=== PATIENT | female | born 1985 | race Caucasian/White ===

== ENCOUNTER 2019-02-25 12:02 | Emergency (ER) | payer BC ==
[~2019-02-25] VITALS: Ht 160 cm; Wt 77.1 kg
--- OUTSIDE RECORDS SUMMARY | 2019-02-25 12:05 | XMS REPORT | Encounter Summary ---
Author Organization Unknown Address [address] [place] [address] Phone [phone] Reason for Visit Medical Complaint Instructions 1. Aphthous ulcer of mouth canker sore: care instructions 2. Pain in throat sore throat: care instructions rapid strep group A, throat Discussion Note: None recorded. Plan of Care Patient Instructions gargle salt water as directed. follow up pcp Reminders Provider Appointments None recorded. Lab Rapid Strep Group a, Throat 10/20/2017 [facility] Referral None recorded. Procedures None recorded. Surgeries None recorded. Imaging None recorded. Medications Name Start Date clonidine HCl 0.1 mg tablet TK 1 T PO QHS UTD estradiol 0.5 mg tablet TK 1 T PO ONCE D fluoxetine 40 mg capsule TK 1 C PO QD IN THE MORNING hydrocodone 5 mg-acetaminophen 325 mg tablet ibuprofen 800 mg tablet methylphenidate 20 mg tablet naproxen 500 mg tablet Medications Administered None recorded. Vitals Height Weight BMI Blood Pressure 5 ft 3 in 200 lbs 35.4 kg/m2 116/70 mm[Hg] Lab Results Date Name Specimen Result Interpretation Description Value Range Status Address Rapid Strep Group a, Throat Result negative [facility]: [address] [place] [address] Swab Location Left and Right tonsillar pillars [facility]: [address] [place] [address] Allergies Code Code System Name Reaction Severity Status Onset NKDA Problems Name Status Onset Date Source Candidal Vulvovaginitis Active Encounter Hypotrichosis of Eyelid Active Encounter Pain in Eye Active Encounter Common Cold Active Encounter Acute Sinusitis Active Encounter Acute Frontal Sinusitis Active Encounter Acute Pharyngitis Active Encounter Allergic Rhinitis Active Encounter Blood in Urine Active Encounter Low Back Pain Active Encounter Cough Active Encounter Procedures Date Name Performed by Hysterectomy Information not available Delivery Information not available Vaccine List Vaccine Type influenza, injectable, quadrivalent 10/01/2017 influenza, seasonal, injectable 08/13/2011 08/13/2013 meningococcal MCV4P 04/02/2012 Tdap 08/13/2011 Social History Smoking Status Never Smoker Past Encounters 10/20/2017 Aphthous Ulcer of Mouth; Pain in Throat [place] [facility], [facility]: [address] [facility], [place] [address], Ph. History of Present Illness Throat-Oral Complaint Reported By: Patient HPI: Location: throat. Quality: sore throat. Severity: mild, moderate. Duration: 3 days. Onset/Timing: gradual. Context: no sick contacts, no foreign travel, non-smoker. Modifying factors: OTC medication. Associated Symptoms: no fever, no headache, no body aches, no sputum production, no shortness of breath, no wheezing, no change in number of pillows needed to sleep at night, no sweats, no significant weight gain, no significant weight loss, no morning cough, no vomiting, no diarrhea, no rash, no nausea, sore throat Review of Systems:ROS as noted in the HPI Review of Systems Basic Reported By: Patient Physical Exam Adult Basic, Adult Female Complete Reported By: Patient Constitutional: General Appearance: obese. Level of Distress: NAD. Ambulation: ambulating normally Psychiatric: Mental Status: active and alert Eyes: Lids and Conjunctivae: non-injected, no discharge Zea-Gtdt-Hamiz-Throat: Ears: no lesions on external ear, no outer ear tenderness, EACs clear, TMs clear. Nose: no lesions on external nose, nares patent, no septal deviation, nasal passages clear, no sinus tenderness, no nasal discharge. Lips, Teeth, and Gums: mouth ulcers. Oropharynx: moist mucous membranes, no erythema, no exudates, tonsils absent Neck: Neck: trachea midline. Lymph Nodes: no cervical LAD Lungs: Respiratory effort: no dyspnea, no tachypnea, no use of accessory muscles, no intercostal retractions. Auscultation: breath sounds normal Cardiovascular: Heart Auscultation: RRR, no murmurs
--- OUTSIDE RECORDS SUMMARY | 2019-02-25 12:05 | XMS REPORT | Encounter Summary ---
Author Organization Unknown Address [address] [place] [address] Phone [phone] Reason for Visit Medical Complaint Instructions 1. Acute sinusitis sinusitis: care instructions fluticasone 50 mcg/actuation nasal spray,suspension Augmentin 875 mg-125 mg tablet 2. Body mass index 30+ - obesity body mass index: care instructions learning about healthy weight 3. Elevated blood pressure elevated blood pressure: care instructions dash diet: care instructions blood pressure monitoring education Discussion Note: None recorded. Plan of Care Patient Instructions Your Care Instructions Sinusitis is an infection of the lining of the sinus cavities in your head. Sinusitis often follows a cold. It causes pain and pressure in your head and face. In most cases, sinusitis gets better on its own in 1 to 2 weeks. But some mild symptoms may last for several weeks. Sometimes antibiotics are needed. Follow-up care is a domínguez part of your treatment and safety. Be sure to make and go to all appointments, and call your doctor if you are having problems. It's also a good idea to know your test results and keep a list of the medicines you take. How can you care for yourself at home? Take an pksn-ksp-iwecmcp pain medicine, such as acetaminophen (Tylenol), ibuprofen (Advil, Motrin), or naproxen (Aleve). Read and follow all instructions on the label. If the doctor prescribed antibiotics, take them as directed. Do not stop taking them just because you feel better. You need to take the full course of antibiotics. Be careful when taking pzbi-poi-jqvpbsb cold or flu medicines and Tylenol at the same time. Many of these medicines have acetaminophen, which is Tylenol. Read the labels to make sure that you are not taking more than the recommended dose. Too much acetaminophen (Tylenol) can be harmful. Breathe warm, moist air from a steamy shower, a hot bath, or a sink filled with hot water. Avoid cold, dry air. Using a humidifier in your home may help. Follow the directions for cleaning the machine. Use saline (saltwater) nasal washes to help keep your nasal passages open and wash out mucus and bacteria. You can buy saline nose drops at a grocery store or drugstore. Or you can make your own at home by adding 1 teaspoon of salt and 1 teaspoon of baking soda to 2 cups of distilled water. If you make your own, fill a bulb syringe with the solution, insert the tip into your nostril, and squeeze gently. Blow your nose. Put a hot, wet towel or a warm gel pack on your face 3 or 4 times a day for 5 to 10 minutes each time. Try a decongestant nasal spray like oxymetazoline (Afrin). Do not use it for more than 3 days in a row. Using it for more than 3 days can make your congestion worse. When should you call for help? Call your doctor now or seek immediate medical care if: You have new or worse swelling or redness in your face or around your eyes. You have a new or higher fever. Watch closely for changes in your health, and be sure to contact your doctor if: You have new or worse facial pain. The mucus from your nose becomes thicker (like pus) or has new blood in it. You are not getting better as expected. Reminders Provider Appointments None recorded. Lab None recorded. Referral None recorded. Procedures None recorded. Surgeries None recorded. Imaging None recorded. Medications Name Start Date amoxicillin 500 mg capsule Augmentin 875 mg-125 mg tablet Take 1 tablet every 12 hours by oral route for 7 days. benzonatate 100 mg capsule TK 1 C PO TID PRF COUGH benzonatate 200 mg capsule clonazepam 0.5 mg tablet clonidine HCl 0.1 mg tablet TK 1 T PO QHS UTD doxycycline monohydrate 100 mg capsule estradiol 0.5 mg tablet TK 1 T PO ONCE D Flucelvax Quad [id number] 60 mcg (15 mcg x 4)/0.5 mL IM suspension IMMUNIZATION GIVEN fluconazole 150 mg tablet fluoxetine 40 mg capsule TK 1 C PO QD IN THE MORNING fluticasone 50 mcg/actuation nasal spray,suspension Hume 1 spray twice a day by intranasal route for 14 days. hydrocodone 5 mg-acetaminophen 325 mg tablet ibuprofen 800 mg tablet Linzess 72 mcg capsule Lyrica 75 mg capsule methylphenidate 20 mg tablet naproxen 500 mg tablet prednisone 20 mg tablet promethazine-DM 6.25 mg-15 mg/5 mL syrup TK 5 ML PO QHS PRN COU. CAN BE SEDATING valacyclovir 500 mg tablet Ventolin HFA 90 mcg/actuation aerosol inhaler INL 1 TO 2 PFS PO Q 4 TO 6 H PRF WHZ OR COUGH Medications Administered None recorded. Vitals Height Weight BMI Blood Pressure 5 ft 3 in 207 lbs 36.7 kg/m2 118/80 mm[Hg] Lab Results None recorded. Allergies Code Code System Name Reaction Severity [...] History Smoking Status Never Smoker Past Encounters 10/19/2018 Acute Sinusitis; Body Mass Index 30+ - Obesity; Elevated Blood Pressure [facility]: [address] [place] [address], Ph. History of Present Illness Tcrjk-Zmjscrmqie-Csszxsg Reported By: Patient HPI: Location: head/sinuses. Quality: nasal/sinus congestion. Duration: 5days. Severity: moderate. Onset/Timing: gradual. Context: no foreign travel, non- smoker, sick contact, allergies. Modifying factors: OTC medication. Associated Symptoms: no sputum production, no shortness of breath, no wheezing, no change in number of pillows needed to sleep at night, no sweats, no significant weight gain, no significant weight loss, no sore throat, no vomiting, no diarrhea, no rash, no nausea, no fever, no muscle aches, headache Review of Systems:ROS as noted in the HPI Review of Systems Basic Reported By: Patient Physical Exam Adult Basic, Adult Female Complete Reported By: Patient Constitutional: General Appearance: obese. Level of Distress: NAD. Ambulation: ambulating normally Psychiatric: Mental Status: active and alert. Orientation: to time, to place, to person Eyes: Lids and Conjunctivae: non-injected Abs-Uxfk-Sjybn-Throat: Ears: no lesions on external ear, no outer ear tenderness, EACs clear, TMs clear. Hearing: no hearing loss. Nose: no lesions on external nose, nares patent, no septal deviation, nasal passages clear, no nasal discharge, sinus tenderness. Lips, Teeth, and Gums: no mouth or lip ulcers, no bleeding gums, normal dentition. Oropharynx: moist mucous membranes, no erythema, no exudates, tonsils not enlarged Lungs: Respiratory effort: no dyspnea, no tachypnea, no use of accessory muscles, no intercostal retractions. Auscultation: breath sounds normal Cardiovascular: Heart Auscultation: RRR, no murmurs
--- OUTSIDE RECORDS SUMMARY | 2019-02-25 12:05 | XMS REPORT | Clinical Summary ---
Author Author [facility] Organization [facility] Address Unknown Phone Unavailable Care Team Providers Care Urogynecology Physician Name Role Phone Antwon Elizondo MD PCP Allergies No Known Allergies Medications End Date Status Medication Sig Dispensed Refills Start Date 02/12/2019 estradiol (ESTRACE) 0.5 Take 1 tablet 90 tablet 3 201 MG tablet (0.5 mg 8 total) by mouth daily. Active Problems No known active problems Encounters Care Team Description Date Type Specialty Aubree Robin MD Abnormal finding on breast imaging 05/02/2018 Hospital Radiology Encounter Aubree Robin MD Abnormal finding on breast imaging 05/02/2018 Hospital Radiology Encounter Fritz Hall MA 03/02/2018 Telephone Obstetrics and Gynecology Aubree Robin MD 03/02/2018 Telephone Obstetrics and Gynecology Aubree Robin MD Well woman exam with routine gynecological exam; Visit for screening mammogram 03/01/2018 Hospital Radiology Encounter after 02/24/2018 Family History Medical History Relation Name Comments Breast cancer Maternal Grandmother Thyroid disease Maternal Grandmother Hypertension Mother Breast cancer Paternal Grandmother Colon cancer Paternal Grandmother Relation Name Status Comments Maternal Grandmother Mother Paternal Grandmother Social History Date Tobacco Use Types Packs/Day Years Used Never Smoker Smokeless Tobacco: Never Used Tobacco Cessation: Counseling Given: No Alcohol Use Drinks/Week oz/Week Comments No Sex Assigned at Date Recorded Not on file Industry Job Start Date Occupation Not on file Not on file Not on file Travel End Travel History Travel Start No recent travel history available. Last Filed Vital Signs Not on file Plan of Treatment Health Maintenance Due Date Last Done Comments INFLUENZA VACCINE 06/13/2019 10/01/2017, 08/13/2013, 08/13/2011 CERVICAL CANCER SCREENING 02/12/2021 02/12/2018 Procedures Comments Procedure Name Priority Date/Time Associated Diagnosis US BREAST COMPLETE LEFT Routine 05/02/2018 Abnormal finding on 10:23 AM CDT breast imaging MAMMO BREAST DIAGNOSTIC Routine 05/02/2018 Abnormal finding on TOMOSYNTHESIS LEFT 9:33 AM CDT breast imaging MAMMO BREAST SCREEN Routine 03/01/2018 Well woman exam with TOMOSYNTHESIS BILATERAL 4:18 PM CDT routine gynecological exam Visit for screening mammogram after 02/24/2018 Results * US Breast Complete Left (05/02/2018 10:23 AM CDT) Narrative Performed At PROCEDURE: [facility] MAMMO BREAST DIAGNOSTIC TOMOSYNTHESIS LEFT, US BREAST COMPLETE LEFT 05/02/2018 9:31 AM COMPARISON: Mammograms dated 02/2018. No prior ultrasound for comparison. TECHNIQUE: Digital left diagnostic mammography with tomosynthesis was performed and interpreted using computer-assisted detection. Hand-held high resolution sonographic images of the left breast(s) including all 4 quadrants and the retroareolar regions were obtained with color Doppler imaging as needed. CLINICAL HISTORY: 33-year-old asymptomatic female with family history notable for multiple paternal aunts and a maternal aunt diagnosed with breast cancer presenting for further evaluation of a left breast focal asymmetry identified on screening. The patient is status post hysterectomy and oophorectomy and has been taking estrogen for 2 years. FINDINGS: MAMMOGRAM: There are scattered fibroglandular densities.Additional full field LM tomosynthesis views and spot magnification compression views in the CC and LM projections demonstrate a persistent 0.9 x 0.8 x 0.8 cm low-density focal asymmetry with indistinct margins in the 8 o'clock position 6 cm from the nipple corresponding to the focal asymmetry/possible mass identified on screening. There are no associated calcifications or distortions. There is left nipple inversion which the patient reports has been lifelong. ULTRASOUND: In the left 7 o'clock position 3 cm from the nipple, there is a 0.9 x 0.9 x 0.3 cm benign appearing oval, circumscribed mixed echogenicity mass without demonstrated intrinsic vascularity which represents a likely sonographic correlate for the left breast focal asymmetry. There are no additional cystic or solid masses in the left breast. IMPRESSION: Probably benign findings in the left breast as above. Recommend correlation with previous outside imaging to confirm stability. In the absence of prior imaging for comparison, short interval follow-up left breast mammogram and ultrasound recommended in 6 months to confirm stability. BI-RADS Category 3. Probably benign.Short interval follow-up left breast mammogram and ultrasound recommended in 6 months. If prior outside mammograms become available for comparison, an addendum will be provided. Findings and recommendations were discussed with the patient at the time of the examination. This facility is accredited by [employer] for Mammography. A negative x-ray report should not delay biopsy if a dominant or clinically suspicious mass is present. Not all cancers are identified by x-ray. [id number] Procedure Note Hm Interface, Radiology Results Incoming - 05/02/2018 10:45 AM CDT PROCEDURE: MAMMO BREAST DIAGNOSTIC TOMOSYNTHESIS LEFT, US BREAST COMPLETE LEFT 05/02/2018 9:31 AM COMPARISON: Mammograms dated 02/2018. No prior ultrasound for comparison. TECHNIQUE: Digital left diagnostic mammography with tomosynthesis was performed and interpreted using computer-assisted detection. Hand-held high resolution sonographic images of the left breast(s) including all 4 quadrants and the retroareolar regions were obtained with color Doppler imaging as needed. CLINICAL HISTORY: 33-year-old asymptomatic female with family history notable for multiple paternal aunts and a maternal aunt diagnosed with breast cancer presenting for further evaluation of a left breast focal asymmetry identified on screening. The patient is status post hysterectomy and oophorectomy and has been taking estrogen for 2 years. FINDINGS: MAMMOGRAM: There are scattered fibroglandular densities. Additional full field LM tomosynthesis views and spot magnification compression views in the CC and LM projections demonstrate a persistent 0.9 x 0.8 x 0.8 cm low-density focal asymmetry with indistinct margins in the 8 o'clock position 6 cm from the nipple corresponding to the focal asymmetry/possible mass identified on screening. There are no associated calcifications or distortions. There is left nipple inversion which the patient reports has been lifelong. ULTRASOUND: In the left 7 o'clock position 3 cm from the nipple, there is a 0.9 x 0.9 x 0.3 cm benign appearing oval, circumscribed mixed echogenicity mass without demonstrated intrinsic vascularity which represents a likely sonographic correlate for the left breast focal asymmetry. There are no additional cystic or solid masses in the left breast. IMPRESSION: Probably benign findings in the left breast as above. Recommend correlation with previous outside imaging to confirm stability. In the absence of prior imaging for comparison, short interval follow-up left breast mammogram and ultrasound recommended in 6 months to confirm stability. BI-RADS Category 3. Probably benign. Short interval follow-up left breast mammogram and ultrasound recommended in 6 months. If prior outside mammograms become available for comparison, an addendum will be provided. Findings and recommendations were discussed with the patient at the time of the examination. This facility is accredited by [employer] for Mammography. A negative x-ray report should not delay biopsy if a dominant or clinically suspicious mass is present. Not all cancers are identified by x-ray. [id number] Performing Organization Address City/State/Zipcode Phone Number [employer] [address] [place] [address] * Mammo Breast Diagnostic Tomosynthesis Left (05/02/2018 9:33 AM CDT) Narrative Performed At PROCEDURE: [facility] MAMMO BREAST DIAGNOSTIC TOMOSYNTHESIS LEFT, US BREAST COMPLETE LEFT 05/02/2018 9:31 AM COMPARISON: Mammograms dated 02/2018. No prior ultrasound for comparison. TECHNIQUE: Digital left diagnostic mammography with tomosynthesis was performed and interpreted using computer-assisted detection. Hand-held high resolution sonographic images of the left breast(s) including all 4 quadrants and the retroareolar regions were obtained with color Doppler imaging as needed. CLINICAL HISTORY: 33-year-old asymptomatic female with family history notable for multiple paternal aunts and a maternal aunt diagnosed with breast cancer presenting for further evaluation of a left breast focal asymmetry identified on screening. The patient is status post hysterectomy and oophorectomy and has been taking estrogen for 2 years. FINDINGS: MAMMOGRAM: There are scattered fibroglandular densities.Additional full field LM tomosynthesis views and spot magnification compression views in the CC and LM projections demonstrate a persistent 0.9 x 0.8 x 0.8 cm low-density focal asymmetry with indistinct margins in the 8 o'clock position 6 cm from the nipple corresponding to the focal asymmetry/possible mass identified on screening. There are no associated calcifications or distortions. There is left nipple inversion which the patient reports has been lifelong. ULTRASOUND: In the left 7 o'clock position 3 cm from the nipple, there is a 0.9 x 0.9 x 0.3 cm benign appearing oval, circumscribed mixed echogenicity mass without demonstrated intrinsic vascularity which represents a likely sonographic correlate for the left breast focal asymmetry. There are no additional cystic or solid masses in the left breast. IMPRESSION: Probably benign findings in the left breast as above. Recommend correlation with previous outside imaging to confirm stability. In the absence of prior imaging for comparison, short interval follow-up left breast mammogram and ultrasound recommended in 6 months to confirm stability. BI-RADS Category 3. Probably benign.Short interval follow-up left breast mammogram and ultrasound recommended in 6 months. If prior outside mammograms become available for comparison, an addendum will be provided. Findings and recommendations were discussed with the patient at the time of the examination. This facility is accredited by [employer] for Mammography. A negative x-ray report should not delay biopsy if a dominant or clinically suspicious mass is present. Not all cancers are identified by x-ray. [id number] Performing Organization Address [facility] Phone Number [employer] [address] [place] [address] * Mammo Breast Screen Tomosynthesis Bilateral (03/01/2018 4:18 PM CDT) Narrative Performed At PROCEDURE: MAMMO BREAST SCREEN TOMOSYNTHESIS BILATERAL [employer] Computer aided detection was utilized for the interpretation of the digital bilateral screening mammography with tomosynthesis. COMPARISON: None available CLINICAL HISTORY: Screening mammogram.The patient has no current breast complaints. DENSITY: The breast tissue is predominantly fatty. There is a focal asymmetry or possible mass in the left medial inferior breast at middle depth. No significant masses, calcifications, or other findings are seen in the right breast. IMPRESSION: 1. Left breast focal asymmetry or possible mass. 2. No mammographic evidence of malignancy in the right breast. RECOMMENDATION: Comparison with prior imaging. If prior images are not available within a 3 week timeframe, recommend left diagnostic mammogram and left breast ultrasound. BI-RADS 0: INCOMPLETE - Need Additional Imaging Evaluation and/or Prior Mammograms for Comparison This facility is accredited by the [employer] for Mammography. A negative x-ray report should not delay biopsy if a dominant or clinically suspicious mass is present.Not all cancers are identified by x-ray. [id number] Performing Organization Address [facility] Phone Number [employer] [address] [place] [address] after 02/24/2018 Insurance Payer Benefit Subscriber ID Type Phone Address Plan / Group BCBS BCBS xxxxxxxxxxxx PPO CHOICE PPO/[employer] PPO Advance Directives Patient has advance care planning documents on file. For more information, mark spencer contact: Riki Galvin [address] [place] [address]
--- OUTSIDE RECORDS SUMMARY | 2019-02-25 12:05 | XMS REPORT | Continuity of Care Document ---
Author Author [facility] Interface Address Unknown Phone Unavailable Problems Problem Status Onset Date Classification Date Reported Comments Source Elevated blood pressure 10/19/2018 Diagnosis 10/19/2018 [facility] Body mass index 30+ - obesity 10/19/2018 Diagnosis 10/19/2018 [facility] Acute sinusitis 10/19/2018 Diagnosis 10/19/2018 [facility] Aphthous ulcer of mouth 10/20/2017 Diagnosis 10/20/2017 [facility] Pain in throat 10/20/2017 Diagnosis 10/20/2017 [facility] Candidal Vulvovaginitis Problem 10/19/2018 [facility] Hypotrichosis of Eyelid Problem 10/19/2018 [facility] Pain in Eye Problem 10/19/2018 [facility] Common Cold Problem 10/19/2018 [facility] Acute Sinusitis Problem 10/19/2018 [facility] Acute Frontal Sinusitis Problem 10/19/2018 [facility] Acute Pharyngitis Problem 10/19/2018 [facility] Allergic Rhinitis Problem 10/19/2018 [facility] Blood in Urine Problem 10/19/2018 [facility] Low Back Pain Problem 10/19/2018 [facility] Cough Problem 10/19/2018 [facility] Medications Medication Details Route Status Patient Instructions Ordering Provider Order Date Source Clonidine Hydrochloride 0.1 MG Oral Tablet clonidine HCl 0.1 mg tablet TK 1 T PO QHS UTD Active [facility] Estradiol 0.5 MG Oral Tablet estradiol 0.5 mg tablet TK 1 T PO ONCE D Active [facility] Fluoxetine 40 MG Oral Capsule fluoxetine 40 mg capsule TK 1 C PO QD IN THE MORNING Active [facility] Acetaminophen 325 MG / Hydrocodone Bitartrate 5 MG Oral Tablet hydrocodone 5 mg-acetaminophen 325 mg tablet Active [facility] Ibuprofen 800 MG Oral Tablet ibuprofen 800 mg tablet Active [facility] Methylphenidate Hydrochloride 20 MG Oral Tablet methylphenidate 20 mg tablet Active [facility] Naproxen 500 MG Oral Tablet naproxen 500 mg tablet Active [facility] Amoxicillin 500 MG Oral Capsule amoxicillin 500 mg capsule Active [facility] Amoxicillin 875 MG / Clavulanate 125 MG Oral Tablet [Augmentin] Augmentin 875 mg-125 mg tablet Take 1 tablet every 12 hours by oral route for 7 days. Active [facility] benzonatate 100 MG Oral Capsule benzonatate 100 mg capsule TK 1 C PO TID PRF COUGH Active [facility] benzonatate 200 MG Oral Capsule benzonatate 200 mg capsule Active [facility] Clonazepam 0.5 MG Oral Tablet clonazepam 0.5 mg tablet Active [facility] Doxycycline Monohydrate 100 MG Oral Capsule doxycycline monohydrate 100 mg capsule Active [facility] influenza A virus A/[place] (H3N2) antigen 0.03 MG/ML / influenza A virus A/[facility]/[id number]/2015 (H1N1) antigen 0.03 MG/ML / influenza B virus B/ antigen 0.03 MG/ML / influenza B virus B/[facility]/[id number]/2016 antigen 0.03 MG/ML Injectable Suspension [Flucelvax Quadrivalent [id number]] Flucelvax Quad 6444-5974 60 mcg (15 mcg x 4)/0.5 mL IM suspension IMMUNIZATION GIVEN Active [facility] Fluconazole 150 MG Oral Tablet fluconazole 150 mg tablet Active [facility] Fluticasone propionate 0.05 MG/ACTUAT Metered Dose Nasal [place] fluticasone 50 mcg/actuation nasal spray,suspension [place] 1 spray twice a day by intranasal route for 14 days. Active [facility] linaclotide 0.072 MG Oral Capsule [Linzess] Linzess 72 mcg capsule Active [facility] pregabalin 75 MG Oral Capsule [Lyrica] Lyrica 75 mg capsule Active [facility] Prednisone 20 MG Oral Tablet prednisone 20 mg tablet Active [facility] Dextromethorphan Hydrobromide 3 MG/ML / Promethazine Hydrochloride 1.25 MG/ML Oral Solution promethazine-DM 6.25 mg-15 mg/5 mL syrup TK 5 ML PO QHS PRN COU. CAN BE SEDATING Active [facility] valacyclovir 500 MG Oral Tablet valacyclovir 500 mg tablet Active [facility] Albuterol 0.09 MG/ACTUAT Metered Dose Inhaler Ventolin HFA 90 mcg/actuation aerosol inhaler INL 1 TO 2 PFS PO Q 4 TO 6 H PRF WHZ OR COUGH Active [facility] Allergies, Adverse Reactions, Alerts Substance Category Reaction Severity Reaction type Status Date Reported Comments Source Immunizations Immunization Date Given Site Status Last Updated Comments Source influenza, injectable, quadrivalent 10/01/2017 completed [facility] influenza, seasonal, injectable 08/13/2013 completed [facility] meningococcal MCV4P 04/02/2012 completed [facility] influenza, seasonal, injectable 08/13/2011 completed [facility] Tdap 08/13/2011 completed [facility] Results Order Name Results Value Reference Range Date Interpretation Comments Source RESULT negative 10/20/2017 [facility] SWAB LOCATION Left and Right tonsillar pillars 10/20/2017 [facility] Vital Signs Vital Sign Value Date Comments Source Diastolic (mm Hg) 80 10/19/2018 [facility] Height 63 10/19/2018 [facility] Systolic (mm Hg) 118 10/19/2018 [facility] Weight 207 10/19/2018 [facility] Diastolic (mm Hg) 70 10/20/2017 [facility] Height 63 10/20/2017 [facility] Systolic (mm Hg) 116 10/20/2017 [facility] Weight 200 10/20/2017 [facility] Encounters Location Location Details Encounter Type Encounter Number Reason For Visit Attending Provider ADM Date DC Date Status Source [place] - [facility] - [id number] [place] Faust[facility] DIRECT[facility]-C: [address] [place] [address], Ph. [phone] [id number] [place] Faustin 10/20/2017 [facility] [place] - [facility] - [id number] WuP-C: [address] [place] [address], Ph. [id number] Minh Barrios 10/19/2018 [facility] Procedures Procedure Code Date Perfomer Comments Source Hysterectomy [facility] Delivery [id number] [facility]
[2019-02-25] MEDS ORDERED: ONDANSETRON HCL INJ 2MG/ML 2ML 2 MG/ML VIAL ONE (13:04)
[2019-02-25] MEDS ORDERED: SODIUM CHLORIDE 0.9% 1000ML 1,000 ML ONE (13:04)
[2019-02-25] MEDS ORDERED: ONDANSETRON HCL INJ 2MG/ML 2ML 2 MG/ML VIAL IV STA (13:07)
[2019-02-25] MEDS ORDERED: ONDANSETRON HCL INJ 2MG/ML 2ML 2 MG/ML VIAL IV ONE (13:15)
[2019-02-25] MEDS ORDERED: SODIUM CHLORIDE 0.9% 1000ML 1,000 ML IV ONE (13:15)
[2019-02-25 13:24] LABS: BASOPHILS # (AUTO) 0.1 (0.0-0.1); BASOPHILS % 0.5 % (0.0-1.0); EOSINOPHILS # (AUTO) 0.1 (0.0-0.4); EOSINOPHILS % 1.2 % (0.0-6.0); HEMATOCRIT 45.8 % (34.2-44.1); HEMOGLOBIN 15.8 g/dL (12.0-16.0); LYMPHOCYTES # (AUTO) 2.1 (1.0-3.2); LYMPHOCYTES % 21.3 % (18.0-39.1); MEAN CORPUSCULAR HEMOGLOBIN 29.1 pg (28-32); MEAN CORPUSCULAR HGB CONC 34.5 g/dL (31-35); MEAN CORPUSCULAR VOLUME 84.3 fL (81-99); MONOCYTES # (AUTO) 0.8 (0.2-0.8); MONOCYTES % 8.3 % (4.4-11.3); NEUTROPHILS # (AUTO) 6.7 (2.1-6.9); NEUTROPHILS % 68.3 % (38.7-80.0); PLATELET COUNT 338 x10e3/uL (140-360); RED BLOOD COUNT 5.43 x10e6/uL (3.6-5.1); RED CELL DISTRIBUTION WIDTH 14.2 % (11.7-14.4)
[2019-02-25 13:35] LABS: CLARITY,URINE HAZY (CLEAR); COLOR,URINE YELLOW (YELLOW)
[2019-02-25 13:36] LABS: LEUKOCYTE ESTERASE ,URINE NEGATIVE (NEGATIVE); NITRITE,URINE NEGATIVE (NEGATIVE)
[2019-02-25 13:37] LABS: BILIRUBIN,URINE 2+ (NEGATIVE); KETONES,URINE 3+ (NEGATIVE); URINE UROBILINOGEN 0.2 mg/dL (0.2 - 1)
[2019-02-25 13:38] LABS: PROTEIN,URINE DIPSTICK 2+ (NEGATIVE)
[2019-02-25 13:39] LABS: AMORPHOUS SEDIMENT,URINE FEW (FEW); BACTERIA,URINE MANY /HPF; EPITHELIAL CELLS,URINE MANY /LPF; MUCUS,URINE MODERATE (RARE); RBC,URINE 0-5 /HPF (0-5)
[2019-02-25 13:52] LABS: ALANINE AMINOTRANSFERASE 220 IU/L (0-55); ALBUMIN/GLOBULIN RATIO 1.1 (0.8-2.0); ALKALINE PHOSPHATASE 109 IU/L (40-150); AMYLASE 27 U/L (25-125); ANION GAP 20.1 mmol/L (8-16); BLOOD UREA NITROGEN 10 mg/dL (7-26); BUN/CREATININE RATIO 13 (6-25); CALCIUM 10.2 mg/dL (8.4-10.2); CARBON DIOXIDE 20 mmol/L (22-29); CHLORIDE 98 mmol/L (98-107); CREATININE, SERUM 0.77 mg/dL (0.57-1.11); EST GLOMERULAR FILTRATION RATE > 60 ML/MIN (60-); GLUCOSE 90 mg/dL (74-118); LIPASE 60 U/L (8-78); POTASSIUM 3.1 mmol/L (3.5-5.1); SODIUM 135 mmol/L (136-145)
[2019-02-25] MEDS ORDERED: SODIUM CHLORIDE 0.9% 50ML 50 ML ONE (15:52)
[2019-02-25] MEDS ORDERED: IOPAMIDOL 370 MG/ML 200 ML INFUS..BTL INJ ONE (15:52)
--- NOTE | 2019-02-25 16:09 | Diagnostic Imaging Report ---
EXAM: CT Abdomen and Pelvis WITH contrast INDICATION: Abdominal pain, decreased po intake, kidney pain, and drainage from the belly button. COMPARISON: CT abdomen/pelvis 06/29/2012. TECHNIQUE: Abdomen and pelvis were scanned utilizing a multidetector helical scanner from the lung base to the pubic symphysis after administration of IV contrast. Coronal and sagittal reformations were obtained. Routine protocol was performed. Scan was performed when during portal venous phase. IV CONTRAST: 100 cc of Isovue-370. ORAL CONTRAST: Water COMPLICATIONS: None RADIATION DOSE: Total DLP: 599.9 MGy*cm Estimated effective dose: (DLP x 0.015 x size factor) mSv CTDIvol has been reviewed. It is below the limits set by the Radiation Protocol Committee (RPC). FINDINGS: LINES and TUBES: None. LOWER THORAX: Unremarkable HEPATOBILIARY: Diffuse mild fatty liver. Hypodensity adjacent to the falciform ligament likely represents focal fatty infiltration. Subcentimeter hypodensity in the caudate lobe is too small to characterize, but likely represents a cyst. No biliary ductal dilation. GALLBLADDER: Status post cholecystectomy. SPLEEN: No splenomegaly. PANCREAS: No focal masses or ductal dilatation. ADRENALS: No adrenal nodules KIDNEYS/URETERS: Kidneys enhance symmetrically. No evidence of hydronephrosis, solid mass, or stone. GI TRACT: Status post sleeve gastrectomy. No evidence of wall thickening or distension. Bowel loops are decompressed. Status post appendectomy. PELVIC ORGANS/BLADDER: Status post hysterectomy. LYMPH NODES: No lymphadenopathy. VESSELS: Unremarkable. PERITONEUM / RETROPERITONEUM: No free air or fluid. BONES AND SOFT TISSUES: There are postsurgical changes involving the umbilicus and lower midline anterior abdominal wall. No evidence of fluid collection. No acute osseous abnormality. CONCLUSION: Status post appendectomy, cholecystectomy, partial gastrectomy, and hysterectomy. Diffuse mild fatty liver. Signed by: Dr. Shercie Woods MD on 02/25/2019 4:05 PM
[2019-02-25 16:47] VITALS: BP 123/65
[2019-02-25] MEDS ORDERED: POTASSIUM CHLORIDE 10MEQ EA PO ONE (17:00)
[2019-02-25] MEDS ORDERED: PROMETHAZINE HCL 25 MG TAB PO PRN (17:00)
== END 2019-02-25 17:25 | disposition home or self-care (01) ==
LOC: ER 12:02
DX: R10.13 Epigastric pain (principal); R11.2 Nausea with vomiting, unspecified; N30.90 Cystitis, unspecified without hematuria; F41.9 Anxiety disorder, unspecified; F32.9 Major depressive disorder, single episode, unspecified
CPT/HCPCS: 36415; 74177; 80053; 81001; 82150; 83690; 85025; 99284; J2405; J7030; Q9967